=== PATIENT | female | born 1965 | race Caucasian/White ===

== ENCOUNTER 2019-04-30 14:38 | Emergency (ER) | payer SELFPAY ==
[2019-04-30] MEDS: DIPHENHYDRAMINE 50 MG INJ IM (15:15)
[2019-04-30] MEDS: METHYLPREDNISOLONE 125 MG INJ IM (15:19)
[2019-04-30] MEDS: FAMOTIDINE 20 MG TAB PO (15:46)
[2019-04-30] MEDS: ACETAMINOPHEN 500 MG TAB PO (15:46)
== END 2019-04-30 16:13 | disposition home or self-care (01) ==
LOC: FTE 16:13
DX: L50.9 Urticaria, unspecified (principal)
CPT/HCPCS: 96372; 99284-25